=== PATIENT | female | born 1945 | race Asian ===

== ENCOUNTER 2020-06-29 14:51 | Emergency (ER) | payer BC ==
--- NOTE | 2020-06-29 17:51 | RADIOLOGY REPORT (SQ) ---
EXAM DESCRIPTION: CHEST SINGLE VIEW IMAGES COMPLETED DATE/TIME: 06/29/2020 2:22 pm REASON FOR STUDY: pre op COMPARISON: None. EXAM PARAMETERS: NUMBER OF VIEWS: One view. TECHNIQUE: Single frontal radiographic view of the chest acquired. RADIATION DOSE: NA LIMITATIONS: None. FINDINGS: LUNGS AND PLEURA: No opacities, masses or pneumothorax. No pleural effusion. MEDIASTINUM AND HILAR STRUCTURES: No masses. Contour normal. HEART AND VASCULAR STRUCTURES: Heart normal in size. Normal vasculature. BONES: No acute findings. HARDWARE: None in the chest. OTHER: Probable hiatal hernia. IMPRESSION: No acute radiographic abnormality. Probable hiatal hernia. TECHNICAL DOCUMENTATION: JOB ID: [id number] 2010 [employer]- All Rights Reserved Reading location - IP/workstation name: [email or web address]
[2020-06-29 18:06] LABS: APPEARANCE,URINE CLEAR; BILIRUBIN,URINE NEGATIVE (NEGATIVE); COLOR,URINE YELLOW; GLUCOSE, URINE NEGATIVE (NEGATIVE); KETONES,URINE TRACE mg/dL (NEGATIVE); LEUKOCYTE ESTERASE,URINE NEGATIVE (NEGATIVE); NITRITE,URINE NEGATIVE (NEGATIVE); PROTEIN,URINE 100 mg/dL (NEGATIVE); URINE SPECIFIC GRAVITY 1.012; UROBILINOGEN,URINE NEGATIVE mg/dL (<2.0)
--- NOTE | 2020-06-29 18:14 | ER Document Report ---
ED Hip Pain/Injury - General Chief Complaint: Hip Injury Stated Complaint: FALL Time Seen by Provider: 06/29/20 16:48 Primary Care Provider: SONIA HERRON MD [ACTIVE STAFF] - Follow up in 3-5 days INGRID WATSON MD [Primary Care Provider] - Follow up as needed - [facility] Notes: Patient is a 75-year-old female with a past medical history of diabetes and high blood pressure who presents after a hip injury 3 days ago. Patient was attempting to take off her night down when she slipped and bumped her left hip. She has not been ambulatory since the event. Her son has been helping her move from place to place. She said she was getting better but son decided to take her to [facility] today where they saw their new PCP. They obtained x- rays there and she was found to have an acute superior and inferior pubic rami fracture on the left. Patient was sent here for further care. Patient denies any other injuries. She denies any other pain. The history is obtained from the son who is translating for the patient as she speaks Anibal. - Related Data Allergies/Adverse Reactions: No Known Allergies Allergy (Unverified 06/29/20 15:46) Past Medical History - General Information source: Patient - Social History Smoking Status: Never Smoker Chew tobacco use (# tins/day): No Frequency of alcohol use: None Drug Abuse: None Patient has homicidal ideation: No Review of Systems - Review of Systems Notes: CONSTITUTIONAL: No fever HENT: No congestion, ear pain, or sore throat. CARDIOVASCULAR: No chest pain or edema. RESPIRATORY: No cough, shortness of breath, congestion, or wheezing. GASTROINTESTINAL: No abdominal pain, nausea, vomiting GENITOURINARY: No dysuria. MUSCULOSKELETAL: Positive for left hip pain. NEUROLOGIC: No seizures. No headache, focal weakness or sensory changes. HEMATOLOGIC: No unusual bruising or bleeding. PSYCHIATRIC: No depression or anxiety. Physical Exam - Vital signs Vitals: Temp Pulse Resp BP Pulse Ox 98.0 F 79 16 195/86 H 98 06/29/20 15:37 06/29/20 15:37 06/29/20 15:37 06/29/20 15:37 06/29/20 15:37 - General General appearance: Appears well In distress: None Notes: VITAL SIGNS: Within normal limits. GENERAL: No acute distress, non-toxic appearance. HEAD: Normal with no signs of head trauma. EYES: Conjunctiva normal, no discharge. EARS: Hearing grossly intact. NOSE: Normal. NECK: Normal range of motion, no tenderness, supple, no lymphadenopathy, No adenopathy, no JVD. CHEST: Clear breath sounds bilaterally. CARDIAC: Regular rate and rhythm. VASCULAR: No Edema. ABDOMEN: Normal and soft with no tenderness, no masses or pulsatile masses. MUSCULOSKELETAL: Range of motion of left hip limited due to fracture. No swelling. No pain to right hip. NEUROLOGICAL: Alert and oriented x 3. No focal sensory or strength deficits. Speech normal. Follows commands appropriately. PSYCHIATRIC: Normal Affect, judgement and mood. SKIN: Normal appearance with no rashes or lesions. Course - Re-evaluation Re-evalutation: 06/29/20 21:[address] Herron from [facility]. He stated that patient could be treated as an outpatient unless they want placement while in the hospital. I recommended that patient come in the hospital as she is nonambulatory. Patient son was in agreement to this. When the hospitalist came to evaluate the patient, patient's son did not want her to stay because he is afraid of Covid. He told me that they have plenty of family members at home that can manage her. I did tell him that she is unable to walk and this would be very difficult. Son continues to request that patient not be admitted. I referred them to orthopedics. I recommended that patient take Tylenol or ibuprofen. I am going to hold off on narcotics as patient does appear very frail and do not want her to have any adverse effects from giving her narcotics or any other falls. Patient will need to call the orthopedics office first thing in the morning for follow-up. - Vital Signs Vital signs: Temp Pulse Resp BP Pulse Ox 98.0 F 79 16 195/86 H 98 06/29/20 15:37 06/29/20 15:37 06/29/20 15:37 06/29/20 15:37 06/29/20 15:37 - Laboratory Results Result Diagrams: 06/29/20 18:00 06/29/20 18:00 Laboratory Results Interpreted: 06/29/20 06/29/20 06/29/20 17:37 18:00 18:00 Hgb 11.8 L Hct 34.1 L Potassium 3.4 L Urine Protein 100 H Urine Ketones TRACE H Urine Blood MODERATE H Critical Laboratory Results Reviewed: No Critical Results - Radiology Results Critical Radiology Results Reviewed: No Critical Results - EKG Interpretation by Me EKG shows normal: Sinus rhythm Rate: Normal Rhythm: NSR When compared to previous EKG there are: Previous EKG unavailable Discharge - Discharge Clinical Impression: Pubic ramus fracture Qualifiers: Encounter type: initial encounter Fracture type: closed Laterality: left Qualified Code(s): S32.592A - Other specified fracture of left pubis, initial encounter for closed fracture Condition: Stable Disposition: AGAINST MEDICAL ADVICE Instructions: Leg Pain Nonspecific ([facility]) Additional Instructions: You have a fracture of the pelvic area. Please follow-up with orthopedics. I have provided the number. Please call them first thing tomorrow for an appointment. You may take Tylenol and ibuprofen for pain. Please return to the ER immediately for any worsening symptoms. Referrals: INGRID WATSON MD [Primary Care Provider] - Follow up as needed SONIA HERRON MD [ACTIVE STAFF] - Follow up in 3-5 days
[2020-06-29] MEDS ORDERED: MORPHINE SULFATE 10 MG/ML INJ IV ONE (18:15)
[2020-06-29 18:20] LABS: ABSOLUTE EOSINOPHILS # (AUTO) 0.2 10^3/uL (0.0-0.6); ABSOLUTE LYMPHOCYTES (AUTO) 2.3 10^3/uL (0.5-4.7); ABSOLUTE MONOCYTES (AUTO) 0.7 10^3/uL (0.1-1.4); ABSOLUTE NEUT (AUTO) 5.3 10^3/uL (1.7-8.2); BASOPHILS % (AUTO) 0.6 % (0-2); EOSINOPHILS % (AUTO) 2.5 % (0-6); HEMATOCRIT 34.1 % (36.0-47.0); HEMOGLOBIN 11.8 g/dL (12.0-15.5); LYMPHOCYTES % (AUTO) 26.7 % (13-45); MEAN CORPUSCULAR HEMOGLOBIN 29.5 pg (27.0-33.4); MEAN CORPUSCULAR HGB CONC 34.6 g/dL (32.0-36.0); MEAN CORPUSCULAR VOLUME 85 fl (80-97); MONOCYTES % (AUTO) 7.9 % (3-13); PLATELET COUNT 251 10^3/uL (150-450); RED CELL DISTRIBUTION WIDTH 13.7 % (11.5-14.0); SEGMENTED NEUTROPHILS % (AUTO) 62.3 % (42-78); TOTAL CELLS COUNTED % (AUTO) 100 %; WHITE BLOOD COUNT 8.5 10^3/uL (4.0-10.5)
[2020-06-29 18:32] LABS: ALBUMIN 3.9 g/dL (3.5-5.0); ALKALINE PHOSPHATASE 62 U/L (38-126); ANION GAP 7 (5-19); ASPARTATE AMINO TRANSFERASE 28 U/L (14-36); BILIRUBIN,DIRECT 0.1 mg/dL (0.0-0.4); BILIRUBIN,TOTAL 0.5 mg/dL (0.2-1.3); BLOOD UREA NITROGEN 12 mg/dL (7-20); CALCIUM 9.7 mg/dL (8.4-10.2); CARBON DIOXIDE 29 mmol/L (22-30); CHLORIDE 105 mmol/L (98-107); GLUCOSE 100 mg/dL (75-110); POTASSIUM 3.4 mmol/L (3.6-5.0); TOTAL PROTEIN 7.2 g/dL (6.3-8.2)
--- NOTE | 2020-06-29 19:19 | EKG REPORT ---
SEVERITY:- BORDERLINE ECG - SINUS RHYTHM BORDERLINE T WAVE ABNORMALITIES : Confirmed by: Kamila Hoyos MD 29-Jun-2020 19:18:53
[2020-06-29] MEDS ORDERED: ACETAMINOPHEN 325 MG TABLET PO ONE (21:23)
--- NOTE | 2020-06-29 21:42 | PDOC CONSULTATION ---
Consultation Consult Date: 06/29/20 Attending physician:: DOUGIE JONES Provider Consulted: BROOKE BASHIR Consult reason:: Left superior and inferior pubic rami fracture History of Present Illness Admission Date/PCP: INGRID WATSON MD Patient complains of: Fall History of Present Illness: GRACIELA MIGUEL is a 75 year old female with a history of hypertension and diabetes who presents to the ED 3 days after she sustained a fall and injured her left hip. 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 Saturday morning while she was trying to change she slipped hit her left hip colliding with the edge of bed. Patient denies any episode of dizziness, chest pain, palpitation, shortness of breath or loss of consciousness immediately before, during or after the fall. Following the incident patient had decreased mobility and stayed in bed for the first day but the following morning she was able to get out of bed and walk with support. She states that she has been feeling progressively better over the past 2 days. She denies any hematuria, dysuria, frequency, abdominal pain, or any change in hair bowel habi t. She was taken to [facility] this morning for further evaluation by her son due to persistence of the pain and inability to move freely. Per ED physician, x-ray obtained there showed left superior and inferior pubic rami fracture and patient was sent to the emergency department for further evaluation and management. Past Medical History Cardiac Medical History: Reports: Hypertension Endocrine Medical History: Reports: Diabetes Mellitus Type 2 Social History Information Source: Patient Lives with: Family Smoking Status: Never Smoker Electronic Cigarette use?: No Frequency of Alcohol Use: None Hx Recreational Drug Use: No Drugs: None - Advance Directive Resuscitation Status: Full Code Family History Parental Family History Reviewed: Yes Children Family History Reviewed: Yes Sibling(s) Family History Reviewed.: Yes Medication/Allergy Allergies/Adverse Reactions: No Known Allergies Allergy (Unverified 06/29/20 15:46) Review of Systems Constitutional: ABSENT: chills, fever(s), headache(s), weight gain, weight loss Eyes: ABSENT: visual disturbances Ears: ABSENT: hearing changes Nose, Mouth, and Throat: ABSENT: mouth pain, sore throat Cardiovascular: ABSENT: chest pain, dyspnea on exertion, edema, orthropnea, palpitations Gastrointestinal: ABSENT: abdominal pain, constipation, diarrhea, hematemesis, hematochezia, nausea, vomiting Genitourinary: ABSENT: dysuria, hematuria Musculoskeletal: PRESENT: as per HPI Integumentary: ABSENT: rash, wounds Neurological: ABSENT: abnormal gait, abnormal speech, confusion, dizziness, focal weakness, syncope Psychiatric: ABSENT: anxiety, depression, homidical ideation, suicidal ideation Endocrine: ABSENT: cold intolerance, heat intolerance, polydipsia, polyuria Hematologic/Lymphatic: ABSENT: easy bleeding, easy bruising Physical Exam Vital Signs: Temp Pulse Resp BP Pulse Ox 98.0 F 79 16 195/86 H 98 06/29/20 15:37 06/29/20 15:37 06/29/20 15:37 06/29/20 15:37 06/29/20 15:37 Intake & Output 06/28/20 06/29/20 06/30/20 06:59 06:59 06:59 Weight 57.3 kg Additional comments: GENERAL APPEARANCE: Alert and oriented x3, in no acute distress HEENT: Normocephalic and atraumatic. No scleral icterus. Moist oral mucosa NECK: Supple. No lymphadenopathy or tenderness. No JVD CHEST: Symmetric. Nontender to palpation. LUNGS: Clear with good air entry bilaterally. No wheezing or crackles HEART: Regular rate and rhythm with normal S1 and S2. No murmurs, gallops, or rubs. ABDOMEN: Flat, soft, active bowel sounds, no direct or rebound tenderness. No organomegaly detected. EXTREMITIES: No cyanosis, clubbing, or edema. Has limitation of movement of the left hip joint due to pain. No local area swelling, abrasion or open wound was noted. Dorsalis pedis and posterior tibialis pulses were +2 bilaterally. MUSCULOSKELETAL: No deformity, atrophy or swelling noted PSYCHIATRIC: Recent and remote memory is intact. Appropriate mood and affect. SKIN: Warm, dry, and well perfused. No lesions or rashes are noted. NEUROLOGIC: No focal sensory or motor deficits are noted. Results Laboratory Results: 06/29/20 18:00 06/29/20 18:00 06/29/20 06/29/20 06/29/20 17:37 18:00 18:00 WBC 8.5 RBC 4.00 Hgb 11.8 L Hct 34.1 L MCV 85 MCH 29.5 MCHC 34.6 RDW 13.7 Plt Count 251 Seg Neutrophils % 62.3 Sodium 141.1 Potassium 3.4 L Chloride 105 Carbon Dioxide 29 Anion Gap 7 BUN 12 Creatinine 0.62 Est GFR ( Amer) > 60 Glucose 100 Calcium 9.7 Total Bilirubin 0.5 AST 28 Alkaline Phosphatase 62 Total Protein 7.2 Albumin 3.9 Urine Color YELLOW Urine Appearance CLEAR Urine pH 6.0 Ur Specific [place] 1.012 Urine Protein 100 H Urine Glucose (UA) NEGATIVE Urine Ketones TRACE H Urine Blood MODERATE H Urine Nitrite NEGATIVE Ur Leukocyte Esterase NEGATIVE Urine WBC (Auto) 1 Urine RBC (Auto) 27 Blood Type Antibody Screen 06/29/20 18:00 WBC RBC Hgb Hct MCV MCH MCHC RDW Plt Count Seg Neutrophils % Sodium Potassium Chloride Carbon Dioxide Anion Gap BUN Creatinine Est GFR ( Amer) Glucose Calcium Total Bilirubin AST Alkaline Phosphatase Total Protein Albumin Urine Color Urine Appearance Urine pH Ur Specific [place] Urine Protein Urine Glucose (UA) Urine Ketones Urine Blood Urine Nitrite Ur Leukocyte Esterase Urine WBC (Auto) Urine RBC (Auto) Blood Type O POSITIVE Antibody Screen NEGATIVE Impressions: Chest X-Ray 06/29/20 16:49 IMPRESSION: No acute radiographic abnormality. Probable hiatal hernia. Assessment and Plan - Diagnosis (1) Pubic ramus fracture Qualifiers: Encounter type: initial encounter Fracture type: closed Laterality: left Qualified Code(s): S32.592A - Other specified fracture of left pubis, initial encounter for closed fracture Is this a current diagnosis for this admission?: Yes (2) Hypertension Is this a current diagnosis for this admission?: Yes (3) Diabetes mellitus Is this a current diagnosis for this admission?: Yes (4) Hypokalemia Is this a current diagnosis for this admission?: Yes - Plan Summary Summary: Patient presents after sustaining a fall and left hip injury 3 days back. Per ED physician, outside imaging shows a left superior and inferior pubic rami fracture. X-ray images to be uploaded by radiology. Patient was examined and the extent of injury and imaging finding was discussed. Plan was to admit patient for pain control, physical therapy and possible orthopedics evaluation. But patient and family refused admission to the hospital. Multiple attempts were made to convince patient and risks of leaving were discussed but was adamant that she does not want to be admitted and stated that she would leave AMA if the plan was to keep her in the hospital. Case was discussed with orthopedics physician(Dr. Herron), patient's presentation and imaging findings were discussed and he suggested that patient can be monitored as outpatient since she is able to ambulate with support. Patient is unlikely to need any surgical intervention at this point. Encourage early ambulation, optimally control pain, enroll for outpatient physical therapy and possible orthopedics follow-up. - Time Time Spent with patient: 35 or more minutes Total Critical Time (Minutes): 45 Medications reviewed and adjusted accordingly: Yes Anticipated Discharge Disposition: Home, Self Care Anticipated Discharge Timeframe: within 48 hours - Inpatient Certification Based on my medical assessment, after consideration of the patient's comorbidities, presenting symptoms, or acuity I expect that the services needed warrant INPATIENT care.: Yes I certify that my determination is in accordance with my understanding of Medicare's requirements for reasonable and necessary INPATIENT services [42 CFR 412.3e].: Yes Medical Necessity: Need Close Monitoring Due to Risk of Patient Decompensation, Need for Pain Control Post Hospital Care: D/C or Transfer Summary
[2020-06-29 21:52] VITALS: BP 169/68
== END 2020-06-29 22:06 | disposition left against medical advice (07) ==
LOC: ER 14:51
DX: S32.592A Other specified fracture of left pubis, initial encounter for closed fracture (principal); M25.552 Pain in left hip; W01.10XA Fall on same level from slipping, tripping and stumbling with subsequent striking against unspecified object, initial encounter; I10 Essential (primary) hypertension; E11.9 Type 2 diabetes mellitus without complications
CPT/HCPCS: 93005; 99285; 51702; 96374; 86900; 86901; 36415; 86850; 85025; 80053; 81001; 71045; 93010; J2270